=== PATIENT | male | born 1960 | race African-American/Black ===

== ENCOUNTER 2017-11-18 07:00 | Inpatient (IN) ==
[~2017-11-18 07:00] MED LIST: ZALEPLON 5 MG CAPSULE PO PRN
[2017-11-18] MEDS ORDERED: GLUCAGON 1 MG VIAL IM PRN (08:34)
[2017-11-18] MEDS ORDERED: DEXTROSE 50% 25 GM/50 ML VIAL IV PRN (08:34)
[2017-11-18] MEDS ORDERED: oxyCODONE/ACETAMINOPHEN 5-325 MG TABLET PO PRN (08:45)
[2017-11-18] MEDS ORDERED: SODIUM CHLORIDE 0.9% 1,000 ML IV SCH (09:00)
[2017-11-18 09:12] LABS: Basophils # 0.1 10*3/uL (0.0-0.2); Basophils % 0.9 % (0.0-0.8); Eosinophils # 0.1 10*3/uL (0.0-0.87); Eosinophils % 2.2 % (0.00-10.9); Hemoglobin 13.1 GM/DL (14.0-18.0); Immature Granulocytes % 0.3 %; Immature Granulocytes Absolute 0.02 #; Lymphocytes # 1.7 10*3/uL (1.4-4.0); Lymphocytes % 26.1 % (21.2-54.2); Mean Corpuscular Hemoglobin 26 PG (27-34); Mean Corpuscular Volume 80.1 FL (87-102); Mean Platelet Volume 10.8 FL (9.6-12.0); Monocytes # 0.5 10*3/uL (0.11-0.8); Monocytes % 7.2 % (1.7-12.7); Neutrophils % 63.3 % (38.7-73.9); Platelet Count 187 T/CUMM (130-400); Red Blood Count 5.12 MC/CUMM (3.8-5.5); Red Cell Distribution Width 13.6 % (9.3-17.3); White Blood Count 6.4 T/CUMM (4-12)
[2017-11-18 09:15] LABS: ABG Base Excess 0.5 MMOL/L (-2.5-2.5); ABG HCO3 24.9 MMOL/L (20-26); ABG Oxygen Saturation 96.3 % (95-100); ABG PCO2 39.3 MM HG (35-48); ABG PH 7.412 (7.35-7.45); ABG PO2 81.7 MM HG (80-95); ABG TCO2 21.9 MMOL/L (23-27)
[2017-11-18 09:29] LABS: Alanine Aminotransferase 37 U/L (16-61); Albumin 3.3 G/DL (3.4-5.0); Alkaline Phosphatase 84 U/L (45-117); Aspartate Amino Transferase 21 U/L (0-37); Bilirubin,Total < 0.39 MG/DL (0.2-1.0); Blood Urea Nitrogen 20 MG/DL (7-18); Calcium 8.5 MG/DL (8.5-10.1); Glucose 91 MG/DL (74-106); Osmolality,Calculated 279.5 MOS/KG (273-304); Potassium 3.6 MMOL/L (3.5-5.1); Sodium 139 MMOL/L (136-145); Total Protein 6.9 G/DL (6.4-8.3)
[2017-11-18] MEDS: CHLORHEXIDINE 4% SOLN 118 ML BOTTLE TOP SCH ×2 (14:18→21:01)
[2017-11-18] MEDS: AMOXICILLIN 875 MG TABLET PO SCH ×2 (14:47→20:58)
[2017-11-18] MEDS: CHLORHEXIDINE 0.12% ORAL RINSE 60 ML BOTTLE SWISH/SPIT SCH ×2 (14:49→21:00)
[2017-11-18] MEDS: amLODIPine 10 MG TABLET PO SCH (15:08)
[2017-11-18] MEDS: VALSARTAN/HCTZ 160-12.5 MG TABLET PO SCH (15:08)
[2017-11-18] MEDS ORDERED: ATORVASTATIN 40 MG TABLET PO SCH (21:00)
[2017-11-19] MEDS: CHLORHEXIDINE 4% SOLN 118 ML BOTTLE TOP SCH (04:30)
[2017-11-19] MEDS ORDERED: PAPAVERINE 60 MG/2 ML VIAL ONE (05:25)
[2017-11-19] MEDS ORDERED: VANCOMYCIN 1,000 MG VIAL ONE (05:26)
[2017-11-19] MEDS ORDERED: FAMOTIDINE 20 MG TABLET PO ONE (05:30)
[2017-11-19] MEDS ORDERED: DIAZEPAM 5 MG TABLET PO ONE (05:30)
[2017-11-19] MEDS ORDERED: CEFUROXIME INJ 1,500 MG in SYRINGE 1 EACH IV ONE (06:00)
[2017-11-19] MEDS ORDERED: CEFUROXIME 1,500 MG VIAL ONE (06:10)
[2017-11-19] MEDS ORDERED: CALCIUM CHLORIDE 1,000 MG/10 ML VIAL IV ONE ×2 (06:17→12:11)
[2017-11-19] MEDS ORDERED: PHENYLEPHRINE 10 MG/1 ML VIAL IV ONE (06:18)
[2017-11-19] MEDS ORDERED: SUFentanil 250 MCG/5 ML AMP ONE (06:18)
[2017-11-19] MEDS ORDERED: MIDAZOLAM 10 MG/2 ML VIAL ONE ×2 (06:18)
[2017-11-19] MEDS ORDERED: HEPARIN/NACL 0.9% 2 UNITS/ML 500 ML IV ONE (06:18)
[2017-11-19] MEDS ORDERED: TRANEXAMIC ACID 1,000 MG/10 ML VIAL ONE (06:18)
[2017-11-19] MEDS ORDERED: LIDOCAINE 1% 5 ML VIAL ONE ×2 (06:18→11:28)
[2017-11-19] MEDS ORDERED: ETOMIDATE 40 MG/20 ML VIAL IV ONE (06:19)
[2017-11-19] MEDS ORDERED: NITROGLYCERIN DRIP 50 MG/250 ML BOTTLE IV ONE (06:19)
[2017-11-19 08:54] LABS: ABG Base Excess 0.8 MMOL/L (-2.5-2.5); ABG HCO3 25.2 MMOL/L (20-26); ABG Oxygen Saturation 99.8 % (95-100); ABG PCO2 40.6 MM HG (35-48); ABG PH 7.407 (7.35-7.45); ABG TCO2 22.3 MMOL/L (23-27); Glucose Heart Surgery 110 MG/DL (74-106); Hematocrit Heart Surgery 39.8 PERCENT (42-52); Hemoglobin Heart Surgery 12.9 G/DL (14.0-18.0); Ionized Calcium Arterial 1.15 MMOL/L (1.21-1.46); PCO2 Patient Temp Arterial 40.6 MMHG; PH Patient Temp Arterial 7.407; Patient Temperature 37 CELCIUS; Potassium Heart/CVR 3.6 MMOL/L (3.5-5.1); Sodium Heart/CVR 138 MMOL/L (135-145)
[2017-11-19] MEDS: amLODIPine 10 MG TABLET PO SCH (08:59)
[2017-11-19] MEDS: VALSARTAN/HCTZ 160-12.5 MG TABLET PO SCH (09:00)
[2017-11-19] MEDS: CHLORHEXIDINE 0.12% ORAL RINSE 60 ML BOTTLE SWISH/SPIT SCH (09:00)
[2017-11-19] MEDS: AMOXICILLIN 875 MG TABLET PO SCH (09:00)
[2017-11-19 09:20] LABS: Apearance,Urine CLEAR (Clear); Bilirubin,Urine Negative (Negative); Blood, Urine Negative (Negative); Glucose,Urine (UA) Negative (Negative); Ketones,Urine Negative (Negative); Mucus,Urine Occasional /LPF (Occasional); Nitrite,Urine Negative (Negative); Protein,Urine Negative; RBC,Urine 1 /HPF (0-4); Squamous Epithelial Cell,Urine Occasional /HPF (0-10); Urine Color Yellow (Yellow); Urine Specific Gravity 1.016 (1.001-1.035); Urine Urobilinogen < 2.0 EU/DL (0.2-1.0)
[2017-11-19] MEDS ORDERED: PHENYLEPHRINE DRIP 40 MG/250 ML PREMIX IV ONE (10:00)
[2017-11-19] MEDS ORDERED: NITROPRUSSIDE 50 MG/2 ML VIAL ONE (10:00)
[2017-11-19] MEDS ORDERED: CALCIUM CHLORIDE 1,000 MG/10 ML SYRINGE IV ONE (10:00)
[2017-11-19] MEDS ORDERED: POTASSIUM CHLORIDE RIDER 100 ML IV ONE (10:00)
[2017-11-19] MEDS ORDERED: ALBUMIN 5% 12.5 GM/250 ML VIAL IV ONE (10:01)
[2017-11-19 10:26] LABS: Hematocrit Heart Surgery 27.2 PERCENT (42-52); Hemoglobin Heart Surgery 8.8 G/DL (14.0-18.0); PCO2 Patient Temp Venous 31.8 MM HG; PH Patient Temp Venous 7.478; PO2 Patient Temp Venous 48.7 MM HG; Potassium Heart/CVR 3.9 MMOL/L (3.5-5.1); VBG Base Excess 0.5 MEQ/L (0-4); VBG HCO3 24.8 MEQ/L (24-28); VBG Oxygen Saturation 91.8 %; VBG PCO2 36.8 MMHG (41-51); VBG PH 7.433; VBG PO2 59.5 MMHG (17-40)
[2017-11-19 10:56] LABS: Hematocrit Heart Surgery 28.1 PERCENT (42-52); PCO2 Patient Temp Venous 21.8 MM HG; PH Patient Temp Venous 7.601; PO2 Patient Temp Venous 19.6 MM HG; Potassium Heart/CVR 3.7 MMOL/L (3.5-5.1); VBG Oxygen Saturation 77.7 %; VBG PH 7.447; VBG PO2 40.4 MMHG (17-40)
[2017-11-19 11:26] LABS: ABG Base Excess 0.1 MMOL/L (-2.5-2.5); ABG HCO3 24.5 MMOL/L (20-26); ABG Oxygen Saturation 99.7 % (95-100); ABG PCO2 37.7 MM HG (35-48); ABG PH 7.418 (7.35-7.45); ABG TCO2 22.1 MMOL/L (23-27); Glucose Heart Surgery 191 MG/DL (74-106); Hematocrit Heart Surgery 30.6 PERCENT (42-52); Hemoglobin Heart Surgery 9.9 G/DL (14.0-18.0); Ionized Calcium Arterial 1.24 MMOL/L (1.21-1.46); PCO2 Patient Temp Arterial 37.7 MMHG; PH Patient Temp Arterial 7.418; Patient Temperature 37 CELCIUS; Potassium Heart/CVR 3.3 MMOL/L (3.5-5.1); Sodium Heart/CVR 134 MMOL/L (135-145)
[2017-11-19] MEDS ORDERED: ALBUMIN 25% 25 GM/100 ML VIAL IV ONE (11:28)
[2017-11-19] MEDS ORDERED: DEXTROSE 5% KCL 20 MEQ 20 MEQ/1,000 ML BAG IV ONE (11:28)
[2017-11-19] MEDS ORDERED: SODIUM BICARBONATE 50 MEQ/50 ML SYRINGE IV ONE (11:28)
[2017-11-19] MEDS ORDERED: MAGNESIUM SULFATE 1 GM/2 ML VIAL ONE (11:28)
[2017-11-19] MEDS ORDERED: PROTAMINE SULFATE 250 MG/25 ML VIAL IV ONE (11:28)
[2017-11-19] MEDS ORDERED: MANNITOL 12.5 GM/50 ML VIAL IV ONE (11:29)
[2017-11-19] MEDS ORDERED: HEPARIN 10,000 UNIT/10 ML VIAL ONE (11:29)
[2017-11-19] MEDS ORDERED: methylPREDNISolone SOD SUC 1,000 MG/8 ML VIAL ONE (11:29)
[2017-11-19] MEDS ORDERED: PHENYLEPHRINE 1 MG/10 ML SYRINGE IV ONE (11:29)
[2017-11-19] MEDS ORDERED: FUROSEMIDE 20 MG/2 ML VIAL ONE (11:29)
[2017-11-19] MEDS ORDERED: MILRINONE 20 MG/100 ML PREMIX IV ONE (11:55)
[2017-11-19] MEDS ORDERED: SEVOFLURANE 1 UNIT/15 MINUTE INH ONE (12:11)
[2017-11-19] MEDS ORDERED: ePHEDrine 50 MG/ML AMP ONE (12:11)
[2017-11-19] MEDS ORDERED: VECURONIUM 10 MG VIAL IV ONE (12:12)
[2017-11-19] MEDS: LACTATED RINGERS 1,000 ML IV PRN ×2 (12:30→16:01)
[2017-11-19] MEDS ORDERED: NITROPRUSSIDE 100 MG in DEXTROSE 5% 250 ML IV PRN (12:43)
[2017-11-19] MEDS ORDERED: INSULIN REGULAR 100 UNIT/ML IV PRN (12:43)
[2017-11-19] MEDS ORDERED: INSULIN REGULAR DRIP 100 ML IV SCH (12:43)
[2017-11-19] MEDS ORDERED: MIDAZOLAM 10 MG/2 ML VIAL IV PRN (12:43)
[2017-11-19] MEDS ORDERED: ONDANSETRON 4 MG/2 ML VIAL IV PRN (12:43)
[2017-11-19] MEDS ORDERED: CALCIUM CHLORIDE 1,000 MG/10 ML SYRINGE IV PRN (12:43)
[2017-11-19] MEDS ORDERED: PHENYLEPHRINE DRIP 40 MG/250 ML PREMIX IV PRN (12:43)
[2017-11-19] MEDS ORDERED: DEXTROSE 50% 25 GM/50 ML VIAL IV PRN ×2 (12:43)
[2017-11-19] MEDS ORDERED: POTASSIUM CHLORIDE RIDER 10 MEQ in PREMIX 1 EACH IV PRN (12:43)
[2017-11-19] MEDS ORDERED: ACETAMINOPHEN 650 MG SUPP RECTAL PRN (12:43)
[2017-11-19] MEDS ORDERED: SODIUM CHLORIDE 0.45% 1,000 ML IV SCH ×2 (12:43)
[2017-11-19] MEDS ORDERED: INSULIN REGULAR 100 UNIT/ML IV ONE (12:43)
[2017-11-19] MEDS ORDERED: MIDAZOLAM 2 MG/2 ML VIAL IV PRN (12:43)
[2017-11-19] MEDS ORDERED: VECURONIUM 10 MG VIAL IV PRN ×2 (12:43)
[2017-11-19] MEDS ORDERED: LACTATED RINGERS 250 ML IV PRN (12:43)
[2017-11-19] MEDS ORDERED: MAGNESIUM SULF RIDER 4 GM in PREMIX 1 EACH IV PRN (12:43)
[2017-11-19] MEDS ORDERED: MAGNESIUM SULF RIDER 2 GM in PREMIX 1 EACH IV PRN (12:43)
[2017-11-19 12:52] LABS: ABG Base Excess 0.6 MMOL/L (-2.5-2.5); ABG HCO3 24.9 MMOL/L (20-26); ABG Oxygen Saturation 96.3 % (95-100); ABG PCO2 39.7 MM HG (35-48); ABG PO2 81.4 MM HG (80-95); ABG TCO2 22.5 MMOL/L (23-27); Glucose Heart Surgery 133 MG/DL (74-106); Hematocrit Heart Surgery 34.2 PERCENT (42-52); Hemoglobin Heart Surgery 11.1 G/DL (14.0-18.0); Potassium Heart/CVR 3.6 MMOL/L (3.5-5.1)
[2017-11-19 12:56] LABS: Basophils % 0.2 % (0.0-0.8); Eosinophils # 0.1 10*3/uL (0.0-0.87); Hemoglobin 11.2 GM/DL (14.0-18.0); Immature Granulocytes % 0.3 %; Immature Granulocytes Absolute 0.02 #; Lymphocytes % 16.6 % (21.2-54.2); Mean Corpuscular HGB Conc 32.9 GM/DL (32-36); Mean Corpuscular Hemoglobin 26 PG (27-34); Mean Corpuscular Volume 79.3 FL (87-102); Mean Platelet Volume 10.7 FL (9.6-12.0); Monocytes # 0.3 10*3/uL (0.11-0.8); Monocytes % 4.7 % (1.7-12.7); Neutrophils # 4.6 10*3/uL (1.4-7.4); Neutrophils % 77.2 % (38.7-73.9); Platelet Count 146 T/CUMM (130-400); Red Blood Count 4.29 MC/CUMM (3.8-5.5); Red Cell Distribution Width 13.6 % (9.3-17.3); White Blood Count 5.9 T/CUMM (4-12)
[2017-11-19] MEDS: ALBUMIN 5% 12.5 GM in PREMIX 1 EACH IV PRN ×3 (13:00→21:04)
[2017-11-19] MEDS: POTASSIUM CHLORIDE RIDER 20 MEQ in PREMIX 1 EACH IV PRN ×2 (13:00→14:34)
[2017-11-19 13:11] LABS: INR 1.1; PT Patient Result 11.2 SECS; Partial Thromboplastin Time 30.4 SECS (0-40)
[2017-11-19 13:24] LABS: CKMB % 4.7 %
[2017-11-19 13:27] LABS: Bilirubin,Total 0.7 MG/DL (0.2-1.0); Osmolality,Calculated 287.8 MOS/KG (273-304); Potassium 3.9 MMOL/L (3.5-5.1); Total Protein 5.5 G/DL (6.4-8.3)
[2017-11-19 13:28] LABS: Troponin I Only 1.95 NG/ML (0.00-0.045)
[2017-11-19] MEDS: KETOROLAC 30 MG/1 ML VIAL IV SCH ×2 (14:32→19:47)
[2017-11-19 15:56] LABS: ABG HCO3 22.7 MMOL/L (20-26); ABG PCO2 40.3 MM HG (35-48); ABG PH 7.367 (7.35-7.45); ABG TCO2 20.5 MMOL/L (23-27); Glucose Heart Surgery 146 MG/DL (74-106); Hematocrit Heart Surgery 37.2 PERCENT (42-52); Hemoglobin Heart Surgery 12.1 G/DL (14.0-18.0); Potassium Heart/CVR 3.9 MMOL/L (3.5-5.1)
[2017-11-19] MEDS: MORPHINE 10 MG/1 ML VIAL IV PRN ×2 (16:58→22:32)
[2017-11-19 18:02] LABS: ABG Base Excess -4.4 MMOL/L (-2.5-2.5); ABG HCO3 20.8 MMOL/L (20-26); ABG Oxygen Saturation 99.5 % (95-100); ABG PCO2 47.7 MM HG (35-48); ABG PH 7.284 (7.35-7.45); ABG TCO2 20.3 MMOL/L (23-27); Glucose Heart Surgery 194 MG/DL (74-106); Hematocrit Heart Surgery 37.8 PERCENT (42-52); Hemoglobin Heart Surgery 12.3 G/DL (14.0-18.0); Potassium Heart/CVR 3.9 MMOL/L (3.5-5.1)
[2017-11-19] MEDS ORDERED: METOPROLOL TARTRATE 25 MG TABLET PO SCH (18:11)
[2017-11-19 19:12] LABS: ABG Base Excess -3.8 MMOL/L (-2.5-2.5); ABG HCO3 21.2 MMOL/L (20-26); ABG Oxygen Saturation 93.8 % (95-100); ABG PCO2 43.8 MM HG (35-48); ABG PH 7.316 (7.35-7.45); ABG PO2 76.7 MM HG (80-95); Glucose Heart Surgery 224 MG/DL (74-106); Hematocrit Heart Surgery 36.7 PERCENT (42-52); Hemoglobin Heart Surgery 11.9 G/DL (14.0-18.0); Potassium Heart/CVR 3.9 MMOL/L (3.5-5.1)
[2017-11-19] MEDS: INSULIN REGULAR 100 UNIT/ML SUBCUT SCH (19:47)
[2017-11-19] MEDS: MORPHINE 4 MG/1 ML VIAL IV PRN (20:17)
[2017-11-19] MEDS ORDERED: CEFUROXIME INJ 1,500 MG in SYRINGE 1 EACH IV SCH (20:17)
[2017-11-19] MEDS ORDERED: CHLORHEXIDINE 0.12% ORAL RINSE 60 ML BOTTLE SWISH/SPIT SCH (21:00)
[2017-11-19] MEDS ORDERED: FUROSEMIDE 40 MG/4 ML VIAL IV ONE (22:30)
[2017-11-19 22:53] LABS: CKMB % 3.6 %
[2017-11-19 22:57] LABS: Troponin I Only 2.46 NG/ML (0.00-0.045)
[2017-11-19 23:58] LABS: ABG Base Excess -2.2 MMOL/L (-2.5-2.5); ABG HCO3 22.6 MMOL/L (20-26); ABG Oxygen Saturation 98.6 % (95-100); ABG PCO2 40.8 MM HG (35-48); ABG TCO2 20.7 MMOL/L (23-27); Glucose Heart Surgery 174 MG/DL (74-106); Hematocrit Heart Surgery 35.5 PERCENT (42-52); Hemoglobin Heart Surgery 11.5 G/DL (14.0-18.0); Potassium Heart/CVR 4.2 MMOL/L (3.5-5.1)
[2017-11-20] MEDS: INSULIN REGULAR 100 UNIT/ML SUBCUT SCH ×2 (00:07→03:34)
[2017-11-20] MEDS: KETOROLAC 30 MG/1 ML VIAL IV SCH ×2 (00:08→06:53)
[2017-11-20] MEDS: MORPHINE 4 MG/1 ML VIAL IV PRN ×2 (01:36→03:37)
[2017-11-20 03:27] LABS: ABG Base Excess -2.2 MMOL/L (-2.5-2.5); ABG HCO3 22.6 MMOL/L (20-26); ABG Oxygen Saturation 98.8 % (95-100); ABG PCO2 42.3 MM HG (35-48); ABG PH 7.349 (7.35-7.45); ABG TCO2 21.2 MMOL/L (23-27); Basophils % 0.1 % (0.0-0.8); Glucose Heart Surgery 149 MG/DL (74-106); Hematocrit 31.5 VOL% (42.0-52.0); Hemoglobin 10.2 GM/DL (14.0-18.0); Hemoglobin Heart Surgery 10.4 G/DL (14.0-18.0); Immature Granulocytes % 0.4 %; Immature Granulocytes Absolute 0.04 #; Lymphocytes # 0.8 10*3/uL (1.4-4.0); Lymphocytes % 7.9 % (21.2-54.2); Mean Corpuscular HGB Conc 32.4 GM/DL (32-36); Mean Corpuscular Hemoglobin 26 PG (27-34); Mean Platelet Volume 10.8 FL (9.6-12.0); Monocytes # 0.5 10*3/uL (0.11-0.8); Monocytes % 4.8 % (1.7-12.7); Neutrophils # 8.4 10*3/uL (1.4-7.4); Neutrophils % 86.8 % (38.7-73.9); Platelet Count 150 T/CUMM (130-400); Potassium Heart/CVR 4.3 MMOL/L (3.5-5.1); Red Blood Count 3.89 MC/CUMM (3.8-5.5); Red Cell Distribution Width 13.9 % (9.3-17.3); White Blood Count 9.6 T/CUMM (4-12)
[2017-11-20 03:50] LABS: Albumin 3.4 G/DL (3.4-5.0); Bilirubin,Direct 0.18 MG/DL (0.0-0.20); Bilirubin,Total 0.6 MG/DL (0.2-1.0); Calcium 8.1 MG/DL (8.5-10.1); Osmolality,Calculated 283.4 MOS/KG (273-304); Potassium 4.3 MMOL/L (3.5-5.1); Total Protein 5.8 G/DL (6.4-8.3)
[2017-11-20 04:02] LABS: Troponin I Only 2.01 NG/ML (0.00-0.045)
[2017-11-20] MEDS ORDERED: GLUCAGON 1 MG VIAL IM PRN ×2 (07:06)
[2017-11-20] MEDS ORDERED: ZALEPLON 5 MG CAPSULE PO PRN (07:06)
[2017-11-20] MEDS ORDERED: ONDANSETRON 4 MG/2 ML VIAL IV PRN (07:06)
[2017-11-20] MEDS ORDERED: MAGNESIUM SULF RIDER 2 GM in PREMIX 1 EACH IV PRN (07:06)
[2017-11-20] MEDS ORDERED: ALUMINUM/MAGNES/SIMETH MAX STR 30 ML UDCUP PO PRN (07:06)
[2017-11-20] MEDS ORDERED: POTASSIUM CHLORIDE 20 MEQ TABLET PO PRN (07:06)
[2017-11-20] MEDS ORDERED: DEXTROSE 50% 25 GM/50 ML VIAL IV PRN ×2 (07:06)
[2017-11-20] MEDS ORDERED: MAGNESIUM SULF RIDER 4 GM in PREMIX 1 EACH IV PRN (07:06)
[2017-11-20] MEDS ORDERED: ACETAMINOPHEN 325 MG TABLET PO PRN (07:06)
[2017-11-20] MEDS: DOCUSATE SODIUM 100 MG CAPSULE PO SCH (08:18)
[2017-11-20] MEDS: VALSARTAN 160 MG TABLET PO SCH (08:19)
[2017-11-20] MEDS: oxyCODONE/ACETAMINOPHEN 5-325 MG TABLET PO PRN ×2 (08:19→13:00)
[2017-11-20] MEDS: hydroCHLOROthiazide 12.5 MG CAPSULE PO SCH (08:19)
[2017-11-20] MEDS: ASPIRIN 325 MG TABLET PO SCH (08:20)
[2017-11-20] MEDS: PANTOPRAZOLE 40 MG TABLET PO SCH (08:21)
[2017-11-20] MEDS: FERROUS SULFATE 325 MG TABLET PO SCH (08:21)
[2017-11-20] MEDS: METOPROLOL TARTRATE 25 MG TABLET PO SCH ×2 (08:21→20:50)
[2017-11-20] MEDS: amLODIPine 10 MG TABLET PO SCH (08:21)
[2017-11-20] MEDS: ASPIRIN EC 325 MG TABLET PO SCH (08:22)
[2017-11-20] MEDS: CHLORHEXIDINE 0.12% ORAL RINSE 60 ML BOTTLE SWISH/SPIT SCH ×2 (08:22→20:00)
[2017-11-20] MEDS: SODIUM CHLOR 0.45% KCL 20 MEQ 20 MEQ/1,000 ML BAG IV SCH (11:30)
[2017-11-20] MEDS: KETOROLAC 30 MG/1 ML VIAL IV PRN ×2 (13:00→20:54)
[2017-11-20] MEDS: TEMAZEPAM 15 MG CAPSULE PO PRN (20:48)
[2017-11-20] MEDS: MAGNESIUM HYDROXIDE SUSP 30 ML UDCUP PO PRN (20:48)
[2017-11-20] MEDS: ATORVASTATIN 40 MG TABLET PO SCH (20:50)
[2017-11-21] MEDS ORDERED: FUROSEMIDE 40 MG/4 ML VIAL IV ONE (06:00)
[2017-11-21 06:12] LABS: Basophils % 0.1 % (0.0-0.8); Hematocrit 30.6 VOL% (42.0-52.0); Hemoglobin 10.2 GM/DL (14.0-18.0); Immature Granulocytes % 0.6 %; Immature Granulocytes Absolute 0.05 #; Lymphocytes # 0.9 10*3/uL (1.4-4.0); Lymphocytes % 9.7 % (21.2-54.2); Mean Corpuscular HGB Conc 33.3 GM/DL (32-36); Mean Corpuscular Hemoglobin 26 PG (27-34); Mean Corpuscular Volume 79.3 FL (87-102); Mean Platelet Volume 10.8 FL (9.6-12.0); Monocytes # 0.8 10*3/uL (0.11-0.8); Monocytes % 8.4 % (1.7-12.7); Neutrophils # 7.3 10*3/uL (1.4-7.4); Neutrophils % 81.2 % (38.7-73.9); Platelet Count 165 T/CUMM (130-400); Red Blood Count 3.86 MC/CUMM (3.8-5.5); Red Cell Distribution Width 14.3 % (9.3-17.3)
[2017-11-21 06:25] LABS: Bilirubin,Indirect 0.5 MG/DL (0.0-1.0)
[2017-11-21 06:28] LABS: Alanine Aminotransferase 30 U/L (16-61); Albumin 3.2 G/DL (3.4-5.0); Alkaline Phosphatase 54 U/L (45-117); Aspartate Amino Transferase 19 U/L (0-37); Blood Urea Nitrogen 27 MG/DL (7-18); Calcium 7.9 MG/DL (8.5-10.1); Glucose 120 MG/DL (74-106); Osmolality,Calculated 286.3 MOS/KG (273-304); Potassium 4.4 MMOL/L (3.5-5.1); Sodium 141 MMOL/L (136-145); Total Protein 5.6 G/DL (6.4-8.3)
[2017-11-21] MEDS: MAGNESIUM HYDROXIDE SUSP 30 ML UDCUP PO PRN (09:34)
[2017-11-21] MEDS: METOPROLOL TARTRATE 25 MG TABLET PO SCH ×2 (09:34→21:50)
[2017-11-21] MEDS: FERROUS SULFATE 325 MG TABLET PO SCH (09:34)
[2017-11-21] MEDS: amLODIPine 10 MG TABLET PO SCH (09:34)
[2017-11-21] MEDS: DOCUSATE SODIUM 100 MG CAPSULE PO SCH (09:34)
[2017-11-21] MEDS: hydroCHLOROthiazide 12.5 MG CAPSULE PO SCH (09:34)
[2017-11-21] MEDS: VALSARTAN 160 MG TABLET PO SCH (09:34)
[2017-11-21] MEDS: ASPIRIN EC 325 MG TABLET PO SCH (09:34)
[2017-11-21] MEDS: PANTOPRAZOLE 40 MG TABLET PO SCH (09:34)
[2017-11-21] MEDS: CHLORHEXIDINE 0.12% ORAL RINSE 60 ML BOTTLE SWISH/SPIT SCH ×2 (09:35→21:51)
[2017-11-21] MEDS: ASPIRIN 325 MG TABLET PO SCH (09:36)
[2017-11-21] MEDS: oxyCODONE/ACETAMINOPHEN 5-325 MG TABLET PO PRN ×2 (13:58→23:35)
[2017-11-21] MEDS ORDERED: POLYETHYLENE GLYCOL POWDER 17 GM PACK PO PRN (14:06)
[2017-11-21] MEDS: SODIUM CHLOR 0.45% KCL 20 MEQ 20 MEQ/1,000 ML BAG IV SCH (16:49)
[2017-11-21] MEDS ORDERED: LACTULOSE 20 GM/30 ML UDCUP PO PRN (18:56)
[2017-11-21] MEDS ORDERED: BISACODYL 10 MG SUPP RECTAL PRN (18:57)
[2017-11-21] MEDS: ATORVASTATIN 40 MG TABLET PO SCH (21:50)
[2017-11-22] MEDS: TEMAZEPAM 15 MG CAPSULE PO PRN (00:09)
[2017-11-22 06:04] LABS: Basophils % 0.3 % (0.0-0.8); Eosinophils % 0.1 % (0.00-10.9); Hematocrit 33.7 VOL% (42.0-52.0); Hemoglobin 11.2 GM/DL (14.0-18.0); Immature Granulocytes % 0.2 %; Immature Granulocytes Absolute 0.02 #; Lymphocytes # 2.6 10*3/uL (1.4-4.0); Lymphocytes % 27.1 % (21.2-54.2); Mean Corpuscular HGB Conc 33.2 GM/DL (32-36); Mean Corpuscular Hemoglobin 26 PG (27-34); Mean Corpuscular Volume 79.5 FL (87-102); Mean Platelet Volume 11.1 FL (9.6-12.0); Monocytes % 10.1 % (1.7-12.7); Neutrophils % 62.2 % (38.7-73.9); Platelet Count 175 T/CUMM (130-400); Red Blood Count 4.24 MC/CUMM (3.8-5.5); Red Cell Distribution Width 14.2 % (9.3-17.3); White Blood Count 9.6 T/CUMM (4-12)
[2017-11-22 06:39] LABS: Bilirubin,Indirect 0.6 MG/DL (0.0-1.0)
[2017-11-22 06:42] LABS: Alanine Aminotransferase 33 U/L (16-61); Albumin 2.9 G/DL (3.4-5.0); Alkaline Phosphatase 56 U/L (45-117); Aspartate Amino Transferase 17 U/L (0-37); Blood Urea Nitrogen 21 MG/DL (7-18); Calcium 7.9 MG/DL (8.5-10.1); Glucose 97 MG/DL (74-106); Osmolality,Calculated 281.4 MOS/KG (273-304); Potassium 3.7 MMOL/L (3.5-5.1); Sodium 140 MMOL/L (136-145); Total Protein 6.5 G/DL (6.4-8.3)
[2017-11-22 06:45] LABS: Troponin I Only 0.831 NG/ML (0.00-0.045)
[2017-11-22 07:57] VITALS: BP 133/86
[2017-11-22] MEDS: PANTOPRAZOLE 40 MG TABLET PO SCH (09:30)
[2017-11-22] MEDS: DOCUSATE SODIUM 100 MG CAPSULE PO SCH (09:30)
[2017-11-22] MEDS: FERROUS SULFATE 325 MG TABLET PO SCH (09:30)
[2017-11-22] MEDS: VALSARTAN 160 MG TABLET PO SCH (09:30)
[2017-11-22] MEDS: amLODIPine 10 MG TABLET PO SCH (09:30)
[2017-11-22] MEDS: METOPROLOL TARTRATE 25 MG TABLET PO SCH (09:31)
[2017-11-22] MEDS: hydroCHLOROthiazide 12.5 MG CAPSULE PO SCH (09:31)
[2017-11-22] MEDS: ASPIRIN 325 MG TABLET PO SCH (09:31)
[2017-11-22] MEDS: CHLORHEXIDINE 0.12% ORAL RINSE 60 ML BOTTLE SWISH/SPIT SCH (09:31)
[2017-11-22] MEDS: ASPIRIN EC 325 MG TABLET PO SCH (10:58)
== END 2017-11-22 11:40 | disposition home or self-care (01) | DRG 236 ==
LOC: N.4E 07:52 → N.CVR 11-19 08:46 → N.ICU 11-20 10:20 → N.TELES 11-20 15:09